=== PATIENT | female | born 1980 | race Caucasian/White ===

== ENCOUNTER → 2017-02-25 | Outpatient (CLI) | payer BC | LOC: CAT 10:33 | DX: K42.9 Umbilical hernia without obstruction or gangrene (principal) ==

== ENCOUNTER → 2017-03-05 | Outpatient (CLI) | payer BC | LOC: ULTRA 15:25 | DX: K76.0 Fatty (change of) liver, not elsewhere classified (principal); R10.9 Unspecified abdominal pain ==

== ENCOUNTER 2017-05-21 05:36 | Day surgery (SDC) | payer BC ==
[~2017-05-21] VITALS: Ht 170.2 cm; Wt 92.5 kg
[2017-05-21] VITALS (10 sets, daily range): BP systolic 93–122; BP diastolic 53–74
--- NOTE | ~2017-05-21 | O ---
[facility] [address] OPERATIVE REPORT Name: LUTHER DALAL Room #: 547-P [facility] M.R.#: [id number] Admission: 05/21/17 Attend Phys: Keith Ambriz MD Discharge: Date of : 76 Report #: [id number] THIS REPORT FOR: //name// CC: Keith Cheney MD DATE OF SERVICE: 05/21/2017 PREOPERATIVE DIAGNOSIS: Complex incisional hernia with multiple defects. POSTOPERATIVE DIAGNOSES: Complex incisional hernia with multiple defects with adhesion of omentum to the abdominal wall. SURGEON: Keith Ambriz M.D. PROCEDURES PERFORMED: Laparoscopic repair of incisional hernia with a 7 x 9 inch Ventralight mesh with echo. ANESTHESIA: General anesthesia. COMPLICATIONS: None. ESTIMATED BLOOD LOSS: 20 mL. PROCEDURE NOTE: With the patient under general anesthesia, the abdomen is prepped and draped in sterile fashion, Patino catheter was placed. IV antibiotic was administered. Timeout was performed. The patient had a lower midline incision and there is a hernia on the superior aspect of this and on CT, there is a second defect inferiorly. A cut down was made on the left side along the lateral aspect of the rectus muscle. The incision is about 2.5 cm. The anterior rectus sheath was identified. The anterior rectus sheath was incised transversely. The muscles were spread along the fiber and then, the posterior sheath was grabbed through this, posterior sheath was opened. Free peritoneal cavity is identified. 0 Vicryl suture placed on the fascia edges for retraction. Origin balloon trocar was then placed directly into the peritoneal cavity. The balloon was inflated. A 10 mm scope was placed. The patient did have quite a bit of omental adhesion starting right adjacent to this trocar and going underneath midline and stuck to the midline incision and then to the right side. A 5 mm trocar was placed level in left upper quadrant lateral to the Origin trocar and then, a second 5 mm trocar was placed inferiorly. The inferior epigastric vessel was identified and this trocar was placed lateral to the epigastric by about 2 cm. The adhesions were taken down using Harmonic scalpel. The adhesion was fairly thin and pretty easily. After the adhesions taken down, there is a 3 cm fascia defect just above the umbilicus, this is the top part of her incision. There is a second hernia defect towards [facility] [address] [place] [address] OPERATIVE REPORT Name: LUTHER DALAL Room #: 547-P [facility]..#: [id number] Admission: 05/21/17 Attend Phys: Keith Ambriz MD Discharge: Date of : 76 Report #: [id number] the bottom of the incision which is about 1.5 cm and this hernia had more depth to it. The upper incisional hernia is more shallow. There is some omentum that was adhesed to the inside of the hernia. The abdominal wall in between is also abnormal with multiple area of thinning. There is also diastasis identified. The dissection inferiorly was performed. I took the peritoneum just inferiorly to the lower defect off of the abdominal wall. I do not think that bladder is close by, but this was performed to allow the bladder properitoneal to drop away from the abdominal wall. The measurement of the fascia defect is between the upper and lower one is 15 cm, essentially her whole incision. A 7 x 9 inch Ventralight mesh was used. The 9 inch is 22 cm. The Origin trocar was removed. The mesh was inserted through the cutdown opening that was made. Balloon trocar was then replaced. The mesh was opened up and oriented with the tubing coming on the side facing the abdominal wall. A suture retrieval was placed through the mid part of the lower abdominal wall between the 2 hernias and this brought out the tubing for the echo system. The tubing was cut and placed in the chamber and the echo was inflated. The green balloon part of the mesh inflated well. This was then pulled up against the wall. It turned out the balloon trocar in the left lower quadrant trocar is medial to the edge of the mesh. At this point, I decided to tack the mesh to the right side of the abdomen and then when I came around the left side of the abdomen, SorbaFix was placed through a new 5 mm trocar placed in the right abdomen. There are 2 trocars that were placed. The left lower quadrant 5 mm trocar was actually removed and used for the right side and the fresh 5 mm was used for the second one. The Origin balloon trocar was also in the way so I had to remove that and the rest of the mesh was then tacked in place. There is good coverage of the mesh as well as defects. Bladder did not need to be as far out laterally as it turned out to be. Superiorly could have used in a little more length. The mesh did go beyond the fascia defect at the very superior part of the mesh about 3 cm from the fascia edge. Inferiorly, the mesh went beyond the fascia defect about 2-3 cm also. Three transfascial sutures were placed to hold the upper mesh well. This was placed at 12 o'clock 1:30 and 10:30 position. Transfascial suture was placed at the 4 o'clock and 8 o'clock position and then 6 o'clock position inferiorly. The peritoneum was brought back up over the mesh tacked down with SorbaFix. I did examine the intestine prior to fixing the hernia. Because of her abdominal symptom, the small bowel appeared normal. The sigmoid colon is identified over the uterus. The anastomosis is in the right upper quadrant. I do not see any pathology. The mesh seated well and the CO2 was evacuated. Trocar is removed. Irrigation was utilized to wash things out. The patient is on her period. There is scant amount of blood that was present around the uterus from the beginning when I went in. The cutdown side of the fascia was identified, posterior sheath was closed with [id number] 0 PDS times 2. Anterior sheath was closed with 0 PDS [id number] times 2 also. I did see the mesh under this wall. Skin incision at the 4-5 mm trocar site in the cutdown site was closed with 5-0 PDS. The transfascial suture site, which there were 6 of them, was brought together with skin glue. The rest of the incision also was sealed with skin glue. Band-Aids applied. The patient's [address] [address] OPERATIVE REPORT Name: LUTHER DALAL Room #: 547-P [facility] M..#: [id number] Admission: 05/21/17 Attend Phys: Keith Ambriz MD Discharge: Date of : 76 Report #: [id number] abdominal binder was placed after she was placed on her bed. The patient was extubated and taken to recovery room. By: Dinora: 05/21/17 1629 1824 Keith Ambriz MD /juvenal
[~2017-05-21 05:36] MED LIST: IBUPROFEN 200200 M1 PO; LEVOTHYROXIN0.175 MG PO; LYSTEDA650 MG PO; PROVIGIL 100 M100 M1 PO; PROZAC20 MG PO
[2017-05-21 11:27] LABS: HEMATOCRIT 38.8 % (37.0-47.0); HEMOGLOBIN 14.4 gm/dL (12.0-15.0)
[2017-05-22 03:18] VITALS: BP 105/59
[2017-05-22 08:00] VITALS: BP 103/61
[2017-05-22] MEDS ORDERED: PERCOCET 5-3251 EACH PO (12:14)
[2017-05-22] MEDS ORDERED: VALIUM5 MG PO (12:14)
[2017-05-22] MEDS ORDERED: ONDANSETRON HCL4 M1 PO (12:14)
[2017-05-22 13:19] VITALS: BP 103/61
== END 2017-05-22 14:52 | disposition home or self-care (01) ==
LOC: TBA 05:36 → OR 05:36 → TBA 05:37 → OR 09:39 → 5S 17:54 → OR 05-22 14:52
PROVIDERS: Surgery
DX: K43.0 Incisional hernia with obstruction, without gangrene (principal); K66.0 Peritoneal adhesions (postprocedural) (postinfection); E03.9 Hypothyroidism, unspecified; M79.7 Fibromyalgia; F32.89 Other specified depressive episodes; Z87.891 Personal history of nicotine dependence; Z86.2 Personal history of diseases of the blood and blood-forming organs and certain disorders involving the immune mechanism; Z90.49 Acquired absence of other specified parts of digestive tract; Z98.890 Other specified postprocedural states; Z87.442 Personal history of urinary calculi
CPT/HCPCS: 50010; 50101; 50249; 50386; 50455; 50555; 50687; 50848; 50857; 51489; 53065; 53307; 53310; 53335; 54022; 54118; 56462; 56525; 56526; 56530; 57092; 62110; 62900; 70005